=== PATIENT | female | born 1995 | race American Indian/Alaskan Native ===

== ENCOUNTER 2018-05-10 19:20 | Emergency (ER) | payer SELFPAY ==
[2018-05-10 19:25] VITALS: BP 119/88
[2018-05-10 20:18] LABS: HCG Qualitative,Urine Negative (Negative)
[2018-05-10 20:21] LABS: Bilirubin,Urine NEG (Negative); Blood,Urine NEG (Negative); Color,Urine Yellow (Yellow); Mucus,Urine FEW /HPF; Protein,Urine <15 mg/dL mg/dL (Negative)
== END 2018-05-11 | disposition left against medical advice (07) ==
LOC: ED 19:20
DX: M54.9 Dorsalgia, unspecified (principal); R10.9 Unspecified abdominal pain; Z53.21 Procedure and treatment not carried out due to patient leaving prior to being seen by health care provider
CPT/HCPCS: 81001; 81025

== ENCOUNTER 2018-06-04 07:40 | Emergency (ER) | payer SELFPAY ==
[2018-06-04 07:48] VITALS: BP 119/77
--- NOTE | 2018-06-04 08:35 | Emergency Department Report ---
- General Chief Complaint: Upper Respiratory Infection Stated Complaint: BODY ACHE Source: patient Mode of arrival: Ambulatory Limitations: No Limitations - History of Present Illness Initial Comments: Pt is a 23 yo female who presents to the ED with c/o a dry cough that began last night. She has associated generalized body aches, chills, and congestion. She denies any sore throat, ear pain, ear discharge. The patient denies any sick contacts. She denies any PMHx. Pt states she also would like to have a test to make sure she is not prior to being treated for a URI. - Related Data Previous Rx's Medication Instructions Recorded Last Taken Type Benzonatate [Tessalon Perles] 100 mg PO Q8HR PRN #20 capsule 06/04/18 Unknown Rx Fluticasone [Flonase] 1 spray NS QDAY #1 bottle 06/04/18 Unknown Rx guaiFENesin [Mucinex] 600 mg PO BID #14 tab.er.12h 06/04/18 Unknown Rx Allergies Allergy/AdvReac Type Severity Reaction Status Date / Time No Known Allergies Allergy Verified 06/04/18 07:41 ED Review of Systems ROS: Stated complaint: BODY ACHE Other details as noted in HPI Comment: All other systems reviewed and negative ED Past Medical Hx - Past Medical History Previous Medical History?: Yes Additional medical history: anemia - Surgical History Past Surgical History?: Yes Additional Surgical History: d/c 2013, hernia repair - Social History Smoking Status: Current Every Day Smoker Substance Use Type: None - Medications Home Medications: Home Medications Medication Instructions Recorded Confirmed Last Taken Type Benzonatate [Tessalon Perles] 100 mg PO Q8HR PRN #20 capsule 06/04/18 Unknown Rx Fluticasone [Flonase] 1 spray NS QDAY #1 bottle 06/04/18 Unknown Rx guaiFENesin [Mucinex] 600 mg PO BID #14 tab.er.12h 06/04/18 Unknown Rx ED Physical Exam - General Limitations: No Limitations General appearance: alert, in no apparent distress - Head Head exam: Present: atraumatic, normocephalic - Eye Eye exam: Present: normal appearance - ENT ENT exam: Present: normal orophraynx, mucous membranes moist, other (mild erythema of the nasal turbinates with dried mucus drainage, otherwise normal ) - Respiratory Respiratory exam: Present: normal lung sounds bilaterally. Absent: respiratory distress, wheezes, rales, rhonchi, stridor, chest wall tenderness, accessory muscle use, decreased breath sounds, prolonged expiratory - Cardiovascular Cardiovascular Exam: Present: regular rate, normal rhythm, normal heart sounds. Absent: systolic murmur, rubs, gallop ED Course Vital Signs 06/04/18 07:45 Temperature 97.8 F Pulse Rate 74 Respiratory 18 Rate Blood Pressure 119/77 O2 Sat by Pulse 100 Oximetry ED Medical Decision Making - Medical Decision Making Pt presents with dry cough, congestion, and chills. Lung sounds are clear. Mild erythema of the nasal turbinates. No TTP of the sinuses bilaterally. Will treat pt symptomatically for a URI. Flu is negative. Advised to follow up with PCP in the next 2-3 days. Discussed using tylenol/ibuprofen for temperature of 100.4 or greater. Advised to return to the ED with any new or worsening symptoms. - Differential Diagnosis Influenza, URI, Viral syndrome Critical care attestation.: If time is entered above; I have spent that time in minutes in the direct care of this critically ill patient, excluding procedure time. ED Disposition Clinical Impression: URI (upper respiratory infection) Qualifiers: URI type: unspecified URI Qualified Code(s): J06.9 - Acute upper respiratory infection, unspecified Disposition: - TO HOME OR SELFCARE Is pt being admited?: No Does the pt Need Aspirin: No Condition: Stable Instructions: Upper Respiratory Infection (ED) Additional Instructions: Follow up with a primary care doctor in the next 2-3 days. Use ibuprofen or tylenol for a temperature of 100.4 or greater. Continue drinking plenty of fluids. Return to the emergency room for any new or worsening symptoms. Prescriptions: Fluticasone [Flonase] 1 spray NS QDAY #1 bottle guaiFENesin [Mucinex] 600 mg PO BID #14 tab.er.12h Benzonatate [Tessalon Perles] 100 mg PO Q8HR PRN #20 capsule PRN Reason: Cough Referrals: [facility] [Other] - 2-3 Days Time of Disposition: 09:20 Print Language: CHINESE
[2018-06-04 08:54] LABS: HCG Qualitative,Urine Negative (Negative)
== END 2018-06-04 09:23 | disposition home or self-care (01) ==
LOC: ED 07:40
DX: J06.9 Acute upper respiratory infection, unspecified (principal); D64.9 Anemia, unspecified; F17.200 Nicotine dependence, unspecified, uncomplicated
CPT/HCPCS: 81025; 87400

== ENCOUNTER 2019-02-18 13:11 | Emergency (ER) | payer MEDICAID ==
--- NOTE | 2019-02-18 13:21 | Event Note ---
ED Screening Note Date of service: 02/18/19 Time: 13:17 ED Screening Note: This is a 23 y.o. F. that presents to the ER with nausea and vomiting. Patient is but unsure of gestation. No OBGYN at this time. LMP 12/21/2018, A0 This initial assessment/diagnostic orders/clinical plan/treatment(s) is/are subject to change based on patients health status, clinical progression and re- assessment by fellow clinical providers in the ED. Further treatment and workup at subsequent clinical providers discretion. Patient/guardian urged not to elope from the ED as their condition may be serious if not clinically assessed and managed. Initial orders include: Labs
[2019-02-18] MEDS ORDERED: ONDANSETRON 4 MG/2 ML INJ IV ONE ×2 (13:39→16:24)
[2019-02-18] MEDS ORDERED: SODIUM CHLORIDE 0.9% 1000 ML 1,000 ML IV ONE ×2 (13:39→16:24)
--- NOTE | 2019-02-18 13:40 | Emergency Department Report ---
ED HPI - General Chief complaint: Nausea/Vomiting/Diarrhea Stated complaint: 8WKS /VOMITING Time Seen by Provider: 02/18/19 13:16 Source: patient Mode of arrival: Ambulatory Limitations: No Limitations - History of Present Illness Initial comments: 23 YO AA FEMALE COMES TO ER WITH N/V WITH PREG. THIS IS NO 5. PARA 3 AND AB NO 1. LMP 9-28 PCP NONE OB NONE RX NONE PMH ANEMIA - Related Data Previous Rx's Medication Instructions Recorded Last Taken Type Docusate Sodium [Colace] 100 mg PO BID #60 capsule 02/18/19 Unknown Rx Nitrofurantoin Mcminn/M-Cryst 100 mg PO Q12HR #6 capsule 02/18/19 Unknown Rx [Macrobid CAP] Pnv,Calcium 72/Iron,Carb/Folic 1 each PO DAILY #30 tablet 02/18/19 Unknown Rx [ Plus Iron Tablet] Allergies Allergy/AdvReac Type Severity Reaction Status Date / Time No Known Allergies Allergy Verified 06/04/18 07:41 ED Review of Systems ROS: Stated complaint: 8WKS /VOMITING Other details as noted in HPI Comment: All other systems reviewed and negative ED Past Medical Hx - Past Medical History Previous Medical History?: Yes Additional medical history: anemia - Surgical History Past Surgical History?: Yes Additional Surgical History: d/c 2013, infant hernia repair - Family History Family history: no significant - Social History Smoking Status: Current Every Day Smoker Substance Use Type: None - Medications Home Medications: Home Medications Medication Instructions Recorded Confirmed Last Taken Type Docusate Sodium [Colace] 100 mg PO BID #60 capsule 02/18/19 Unknown Rx Nitrofurantoin Mcminn/M-Cryst 100 mg PO Q12HR #6 capsule 02/18/19 Unknown Rx [Macrobid CAP] Pnv,Calcium 72/Iron,Carb/Folic 1 each PO DAILY #30 tablet 02/18/19 Unknown Rx [ Plus Iron Tablet] ED Physical Exam - General Limitations: No Limitations General appearance: alert - Head Head exam: Present: atraumatic, normocephalic - Eye Eye exam: Present: normal appearance - ENT ENT exam: Present: mucous membranes moist - Neck Neck exam: Present: normal inspection - Respiratory Respiratory exam: Present: normal lung sounds bilaterally. Absent: respiratory distress - Cardiovascular Cardiovascular Exam: Present: regular rate, normal rhythm. Absent: systolic murmur, diastolic murmur, rubs, gallop - GI/Abdominal GI/Abdominal exam: Present: soft, normal bowel sounds - Extremities Exam Extremities exam: Present: normal inspection - Back Exam Back exam: Present: normal inspection - Neurological Exam Neurological exam: Present: alert, oriented X3 - Psychiatric Psychiatric exam: Present: normal affect, normal mood - Skin Skin exam: Present: warm, dry, intact, normal color. Absent: rash ED Course Vital Signs 02/18/19 02/18/19 13:14 16:21 Temperature 98.5 F 98 F Pulse Rate 123 H 53 L Respiratory 22 13 Rate Blood Pressure 134/93 Blood Pressure 104/53 [left arm] O2 Sat by Pulse 99 100 Oximetry ED Medical Decision Making - Lab Data Result diagrams: 02/18/19 10:25 02/18/19 13:54 - Radiology Data Radiology results: report reviewed, image reviewed - Medical Decision Making Labs 02/18/19 02/18/19 02/18/19 10:25 13:40 13:54 WBC 4.1 L RBC 4.15 Hgb 13.0 Hct 38.5 MCV 93 MCH 31 MCHC 34 RDW 13.1 L Plt Count 171 Lymph % (Auto) 16.8 Mcminn % (Auto) 8.8 H Eos % (Auto) 0.0 Baso % (Auto) 1.1 Lymph # 0.7 L Mcminn # 0.4 Eos # 0.0 Baso # 0.0 Seg Neutrophils % 73.3 H Seg Neutrophils # 3.0 Sodium 136 L Potassium 4.1 Chloride 100.0 Carbon Dioxide 17 L Anion Gap 23 BUN 12 Creatinine 0.5 L Estimated GFR > 60 BUN/Creatinine Ratio 24 Glucose 75 Calcium 9.4 Total Bilirubin 0.70 AST 12 ALT 9 Alkaline Phosphatase 57 Total Protein 7.7 Albumin 4.2 Albumin/Globulin Ratio 1.2 HCG, Quant Urine Color Yellow Urine Turbidity Cloudy Urine pH 5.0 Ur Specific [place] 1.030 Urine Protein 100 mg/dl Urine Glucose (UA) Neg Urine Ketones 80 Urine Blood Mod Urine Nitrite Neg Urine Bilirubin Neg Urine Urobilinogen < 2.0 Ur Leukocyte Esterase Neg Urine WBC (Auto) 6.0 Urine RBC (Auto) 4.0 U Epithel Cells (Auto) 34.0 H Urine Bacteria (Auto) 2+ Urine Mucus Few 02/18/19 13:54 WBC RBC Hgb Hct MCV MCH MCHC RDW Plt Count Lymph % (Auto) Mcminn % (Auto) Eos % (Auto) Baso % (Auto) Lymph # Mcminn # Eos # Baso # Seg Neutrophils % Seg Neutrophils # Sodium Potassium Chloride Carbon Dioxide Anion Gap BUN Creatinine Estimated GFR BUN/Creatinine Ratio Glucose Calcium Total Bilirubin AST ALT Alkaline Phosphatase Total Protein Albumin Albumin/Globulin Ratio HCG, Quant [id number] H Urine Color Urine Turbidity Urine pH Ur Specific [place] Urine Protein Urine Glucose (UA) Urine Ketones Urine Blood Urine Nitrite Urine Bilirubin Urine Urobilinogen Ur Leukocyte Esterase Urine WBC (Auto) Urine RBC (Auto) U Epithel Cells (Auto) Urine Bacteria (Auto) Urine Mucus Vital Signs 02/18/19 02/18/19 13:14 16:21 Temperature 98.5 F 98 F Pulse Rate 123 H 53 L Respiratory 22 13 Rate Blood Pressure 134/93 Blood Pressure 104/53 [left arm] O2 Sat by Pulse 99 100 Oximetry LABS NOTED RH PENDING AT THIS TIME UA NOTED US NOTED NS X2 WITH ZOFRAN X 2 VS IMPROVED TAKING PO HGB WNL- LOOKS PALE - WILL PUT ON MVI FE AND COLACE DC HOME WITH OBGYN FOLLOW UP. - Differential Diagnosis RO SPONT. AB/UTI/HYPEREMESIS Critical care attestation.: If time is entered above; I have spent that time in minutes in the direct care of this critically ill patient, excluding procedure time. ED Disposition Clinical Impression: Nausea/vomiting in , UTI (urinary tract infection) Disposition: - TO HOME OR SELFCARE Is pt being admited?: No Does the pt Need Aspirin: No Condition: Stable Instructions: Morning Sickness (ED), (ED) Additional Instructions: ZOFRAN FOR NAUSEA TYLENOL IS ALL YOU CAN TAKE FOR PAIN DAILY MVI FOLLOW UP WITH OBGYN MARIE REFERRALS BELOW Prescriptions: Docusate Sodium [Colace] 100 mg PO BID #60 capsule Nitrofurantoin Mcminn/M-Cryst [Macrobid CAP] 100 mg PO Q12HR #6 capsule Pnv,Calcium 72/Iron,Carb/Folic [ Plus Iron Tablet] 1 each PO DAILY #30 tablet Referrals: PRIMARY CARE, [Primary Care Provider] - 3-5 Days CORTNEY RENEE CNM [Staff Physician] - 3-5 Days BRIAN GARZA MD [Staff Physician] - 3-5 Days Time of Disposition: 16:26
[2019-02-18 13:59] LABS: Bacteria,Urine 2+ /HPF (Negative); Bilirubin,Urine NEG (Negative); Blood,Urine MOD (Negative); Color,Urine Yellow (Yellow); Mucus,Urine FEW /HPF; Urobilinogen,Urine < 2.0 mg/dL (<2.0)
[2019-02-18 14:29] LABS: Basophils % (Auto) 1.1 % (0.0-1.8); Hematocrit 38.5 % (30.3-42.9); Lymphocytes # (Auto) 0.7 K/mm3 (1.2-5.4); Lymphocytes % (Auto) 16.8 % (13.4-35.0); Mean Corpuscular HGB Conc 34 % (30-34); Mean Corpuscular Volume 93 fl (79-97); Monocytes # (Auto) 0.4 K/mm3 (0.0-0.8); Monocytes % (Auto) 8.8 % (0.0-7.3); Platelet Count 171 K/mm3 (140-440); Red Blood Count 4.15 M/mm3 (3.65-5.03); Red Cell Distribution Width 13.1 % (13.2-15.2)
[2019-02-18 14:49] LABS: Alanine Aminotransferase 9 units/L (7-56); Albumin 4.2 g/dL (3.9-5); BUN/Creatinine Ratio 24; Blood Urea Nitrogen 12 mg/dL (7-17); Calcium 9.4 mg/dL (8.4-10.2); Hemolysis Index 8
--- NOTE | 2019-02-18 16:17 | Ultrasound Report ---
ULTRASOUND OBSTETRIC INDICATION / CLINICAL INFORMATION: WITH ABD PAIN. TECHNIQUE: Transabdominal. COMPARISON: None available. FINDINGS: GESTATIONAL SAC: Well-defined oval shape and intrauterine in location. . EMBRYO/FETUS: No significant abnormality. - [place]-Rump Length = 17.9 cm = 8 weeks, 2 day(s). - Heart Rate, beats per minute (if present) = 176 ADNEXA: No significant abnormality. FREE FLUID: None. ADDITIONAL FINDINGS: None. IMPRESSION: 1. Single, living intrauterine with estimated sonographic age of 8 weeks, 2 day(s). Signer Name: Marco A Michele MD Signed: 02/18/2019 4:13 PM Workstation Name: [id number]
--- NOTE | 2019-02-18 16:17 | Ultrasound Report ---
ULTRASOUND OBSTETRIC INDICATION / CLINICAL INFORMATION: WITH ABD PAIN. TECHNIQUE: Transabdominal. COMPARISON: None available. FINDINGS: GESTATIONAL SAC: Well-defined oval shape and intrauterine in location. . EMBRYO/FETUS: No significant abnormality. - [place]-Rump Length = 17.9 cm = 8 weeks, 2 day(s). - Heart Rate, beats per minute (if present) = 176 ADNEXA: No significant abnormality. FREE FLUID: None. ADDITIONAL FINDINGS: None. IMPRESSION: 1. Single, living intrauterine with estimated sonographic age of 8 weeks, 2 day(s). Signer Name: Marco A Michele MD Signed: 02/18/2019 4:13 PM Workstation Name: [id number]
[2019-02-18 16:22] VITALS: BP 104/53
[2019-02-18] MEDS ORDERED: cefTRIAXone/NS 1 GM/50 ML 1 GM/50 ML BAG IV ONE (16:24)
== END 2019-02-18 17:24 | disposition home or self-care (01) ==
LOC: ED 13:11
DX: O23.41 Unspecified infection of urinary tract in pregnancy, first trimester (principal); Z3A.01 Less than 8 weeks gestation of pregnancy
CPT/HCPCS: 36415; 76801; 76817; 80053; 81001; 84702; 85025; 86900; 86901; 96361; 96374; 96375; 96376; 99284; J0696; J2405; J7030